=== PATIENT | male | born 1955 | race Caucasian/White ===

== ENCOUNTER → 2016-08-24 | Day surgery (SDC) | payer OTHER ==
[2016-08-24 11:49] LABS: HCT 40.8 % (42.0-52.0); HGB 14.3 g/dl (13.2-18.0); MCH 30.4 pg (25.0-31.0); MCV 86.8 fL (78.0-100.0); MPV 10.4 fL (6.0-9.5); RBC 4.7 M/uL (4.70-6.00); RDW 12.2 % (11.5-14.0); WBC 7.9 K/uL (4.0-10.5)
[2016-08-24 12:07] LABS: ALBUMIN 4.6 g/dL (3.5-5.0); BILIRUBIN - TOTAL 0.8 mg/dL (0.1-1.0); CREATININE 1.5 mg/dL (0.7-1.2); GLOBULIN (CALCULATION) 3.1 g/dL (2.2-4.2); POTASSIUM 5.2 mmol/L (3.5-5.1); TOTAL PROTEIN 7.7 g/dL (6.4-8.3)
== END | disposition home or self-care (01) ==
LOC: FAS 09:53
PROVIDERS: Surgery
DX: Z12.11 Encounter for screening for malignant neoplasm of colon (principal); I69.951 Hemiplegia and hemiparesis following unspecified cerebrovascular disease affecting right dominant side; E11.9 Type 2 diabetes mellitus without complications; I10 Essential (primary) hypertension; E78.00 Pure hypercholesterolemia, unspecified; I25.10 Atherosclerotic heart disease of native coronary artery without angina pectoris; Z85.038 Personal history of other malignant neoplasm of large intestine; Z87.442 Personal history of urinary calculi; Z82.61 Family history of arthritis; Z83.42 Family history of familial hypercholesterolemia; Z82.62 Family history of osteoporosis; Z80.0 Family history of malignant neoplasm of digestive organs; Z83.3 Family history of diabetes mellitus; Z82.49 Family history of ischemic heart disease and other diseases of the circulatory system; Z79.84 Long term (current) use of oral hypoglycemic drugs; Z79.899 Other long term (current) drug therapy
CPT/HCPCS: 36415; 80053; J2704